=== PATIENT | female | born 1940 ===

== ENCOUNTER 2016-10-09 07:02 | Day surgery (SDC) | payer MEDICARE, MEDICAID ==
[~2016-10-09] VITALS: Ht 157.5 cm; Wt 87.1 kg
[2016-10-09] VITALS (8 sets, daily range): BP systolic 88–123; BP diastolic 54–65
[~2016-10-09 07:02] MED LIST: ASPIR 8181 MG ORAL; AZOR 5-20 MG T1 EACH ORAL; LEVOTHYROXINE100 MCG ORAL; LR 1000ml 1,000 ML IVLG SCH; OMEGA 3 1,0001 EACH PO; SIMVASTATIN20 MG ORAL; TRAMADOL HCL50 MG ORAL; VICODIN1 TA1 ORAL; VITAMIN D1000 UNI1 ORAL
[2016-10-09] MEDS ORDERED: LR 1000ml ONE (07:03)
[2016-10-09] MEDS ORDERED: Propofol 10mg/ml 20ml IV ONE (07:03)
--- NOTE | 2016-10-09 08:36 | Short Stay Surgery H&P ---
History of Present Illness History of Present Illness Chief Complaint Abdominal pains/screening colon with history of coloon polyp. SOCO Mitchell is a 76 year old female who was admitted on for Gerd, Abdominal Pain/history of colon polyps Patient History Allergies: Coded Allergies: PHENAZOPYRIDINE (Verified Adverse Reaction, Unknown, 08/24/14) pass out PAST MEDICAL HISTORY: (1) Hypertension (2) Hypothyroid (3) Hyperlipidemia Past Surgeries: Social History: Medication History Scheduled Acetaminophen/Hydrocodone 5/500 (Vicodin), 1 TAB ORAL PRN, (Reported) Amlodipine Bes/Olmesartan Med 5-20 Mg Tablet (Helga 5-20 Mg Tablet), 1 TAB ORAL DAILY, (Reported) Aspirin* (Aspir 81*), 81 MG ORAL DAILY, (Reported) Cholecalciferol (Vitamin D3)* (Vitamin D*), 1,000 UNIT ORAL DAILY, (Reported) Levothyroxine Sodium* (Levothyroxine Sodium*), 100 MCG ORAL DAILY, (Reported) Troy-3 Fatty Acids/Fish Oil (Troy 3 1,000 Mg Softgel), 1 EACH PO DAILY, ( Reported) Simvastatin (Zocor), 20 MG ORAL BEDTIME, (Reported) Tramadol Hcl* (Ultram*), 50 MG ORAL PRN, (Reported) Review of Systems Cardiovascular: Reports: no symptoms Respiratory: Reports: no symptoms Skeletal: Reports: no symptoms Gastrointestinal: Reports: gastro esophageal reflux disease Genitourinary: Reports: no symptoms Neurologic: Reports: no symptoms Endocrine: Reports: other, thyroid Hematologic: Reports: no symptoms Physical Exam Vital Signs Last Vital Signs Date Time Temp Pulse Resp B/P Pulse Ox O2 Delivery O2 Flow Rate FiO2 10/09/16 08:10 97.5 68 20 123/59 96 Room Air Skin: normal HENT: normal Heart: normal Lungs: normal Abdomen: normal Extremities: normal Genitourinary: normal Plan Plan of Care Upper and lower GI endoscopies. Preop Interventions None. Summary of Findings See the reports Final Diagnosis: Attestation Are the patient's medical conditions optimized for surgery? Attestation Response: yes FIORDALIZA HESTER Oct 09, 2016 08:36
--- NOTE | 2016-10-09 08:37 | Pre-Procedure Note/Attestation ---
Pre-Procedure Note/Attestation Complete Prior to Procedure Planned Procedure: left Procedure Narrative: Endoscopic exam of the upper and the lower GI tract. Indications for Procedure Pre-Operative Diagnosis: R/O Gastritis'/colon polyps. Attestation I attest that I discussed the nature of the procedure; its benefits; risks and complications; and alternatives (and the risks and benefits of such alternatives ), prior to the procedure, with the patient (or the patient's legal insurance representative). I attest that, if there was a reasonable possibility of needing a blood transfusion, the patient (or the patient's legal insurance representative) was given the [place] Department [employer] standardized written summary, pursuant to the Harvinder Saida Blood Safety Act ([place] Health and Safety Code # 1645, as amended). I attest that I re-evaluated the patient just prior to the surgery and that there has been no change in the patient's H&P, except as documented below: MIRSAID Oct 09, 2016 08:37
[2016-10-09] MEDS ORDERED: LR 1000ml 1,000 ML IVLG SCH (08:53)
[2016-10-09] MEDS ORDERED: fentaNYL 100 mcg/2 mL IV PRN (09:00)
--- NOTE | 2016-10-09 09:00 | Anethesia Preoperative Eval ---
Anesthesia Pre-op PMH/ROS General Date of Evaluation: Oct 09, 2016 Time of Evaluation: 08:36 Anesthesiologist: Reilly ASA Score: ASA 3 Mallampati Score Class I : Soft palate, uvula, fauces, pillars visible Class II: Soft palate, uvula, fauces visible Class III: Soft palate, base of uvula visible Class IV: Only hard plate visible Mallampati Classification: Class II Surgeon: Francisco Diagnosis: Abdominal pain, historoy of colon polyps Surgical Procedure: EGD, colonoscopy Family History: no anesthesia problems Allergies: Coded Allergies: PHENAZOPYRIDINE (Verified Adverse Reaction, Unknown, 08/24/14) pass out Medications: see eMAR Past Medical History Cardiovascular: Reports: HTN, Denies: CAD, [place], arrhythmia, other, valve dz Pulmonary: Denies: COPD, AUDIE, asthma, other Gastrointestinal/Genitourinary: Reports: other - Renal CA, Denies: CRI, ESRD, GERD Neurologic/Psychiatric: Denies: CVA, TIA, dementia, depression/anxiety, other Endocrine: Reports: hypothyroidism, Denies: DM, other, steroids HEENT: Denies: LITTLE TRAVERSE (L), LITTLE TRAVERSE (R), cataract (L), cataract (R), glaucoma, other Hematology/Immune: Denies: DVT, anemia, bleeding disorder, other Musculoskeletal/Integumentary: Denies: DDD, DJD, OA, RA, edema, other Other: obesity PMH Narrative: HTN, hypothyroid, renal CA, hypercholesterolemia, obesity PSxH Narrative: C/S, kidney surgery Anesthesia Pre-op Phys. Exam Physician Exam Last Vital Signs Date Time Temp Pulse Resp B/P Pulse Ox O2 Delivery O2 Flow Rate FiO2 10/09/16 08:10 97.5 68 20 123/59 96 Room Air Constitutional: NAD Neurologic: CN 2-12 intact Cardiovascular: RRR, no M/R/G Respiratory: CTA Gastrointestinal: S/NT/ND Airway Exam Mallampati Score: Class II MO: full ROM: full Dentures: upper - Loose front uppers Anesthesia Pre-op A/P Risk Assessment & Plan Assessment: Colon polyps, abdominal pain Plan: GA, TIVA Status Change Before Surgery: No Pre-Antibiotics Drug: None VIDYA THACKER M.D. Oct 09, 2016 09:00
--- NOTE | 2016-10-09 09:01 | Immediate Post-Op Evaluation ---
Immediate Post-Op Evalulation Immediate Post-Op Evalulation Procedure: EGD, Colonoscopy Date of Evaluation: Oct 09, 2016 Time of Evaluation: 09:47 IV Fluids: 300 Blood Pressure Systolic: 88 Blood Pressure Diastolic: 54 Pulse Rate: 68 Respiratory Rate: 10 O2 Sat by Pulse Oximetry: 98 Temperature (Fahrenheit): 97.7 Pain Score (1-10): 0 Nausea: No Vomiting: No Complications No complication Patient Status: awake, patent, none Hydration Status: adequate Drug: None VIDYA THACKER M.D. Oct 09, 2016 09:01
--- NOTE | 2016-10-09 09:24 | Endoscopy Procedure Note ---
Endoscopy Procedure Note Indication for Procedure: History of colon polyps and GERDs. Procedures Performed: EGD - Mild gastroduodenitis otherwise normal upper GI endoscopy. Antral and distal duodenal biopsies were done., colonoscopy - Extremely difficult procedure due significant redundancy of colon. Mild diverticulosis of the left colon. Minimal internal hemorrhoids. No polyps/ tumors noted. Pt Tolerated Procedure Well: Yes Estimated Blood Loss: none Anesthesiologist: Dr. Grover. Anesthesia: moderate sedation Medication Given: see anesthesia record Implant(s) used?: No 50 yrs or older w/o bx or poly: Yes 10yrs. F/U not recommended: Yes If not recommended, why?: 10 yrs. F/U needed: Yes Med reason:<3 yrs.: System Reason:<3 yrs.: FIORDALIZA HESTER Oct 09, 2016 09:24
--- NOTE | 2016-10-09 09:25 | Discharge Instructions ---
Discharge Instructions Discharge Instructions Follow up with: Visit the doctor after 2 weeks. For Congestive Heart Failure Reminder Report to your physician any weight gain of 5 pounds or more in one week. FIORDALIZA HESTER Oct 09, 2016 09:25
--- NOTE | 2016-10-09 09:34 | 48 Hour Post Anesthesia Eval ---
Post Anesthesia Evaluation Procedure: EGD, Colonoscopy Date of Evaluation: Oct 09, 2016 Time of Evaluation: 10:03 Blood Pressure Systolic: 109 0: 55 Pulse Rate: 67 Respiratory Rate: 18 O2 Sat by Pulse Oximetry: 98 Airway: patent Nausea: No Vomiting: No Pain Intensity: 0 Hydration Status: adequate Cardiopulmonary Status: Stable Mental Status/LOC: patient returned to baseline Follow-up Care/Observations: As per surgery Post-Anesthesia Complications: No anesthetic complication Follow-up care needed: N/A VIDYA THACKER M.D. Oct 09, 2016 09:34
[2016-10-09] MEDS ORDERED: LR 1000ml 1,000 ML IV SCH (10:53)
--- NOTE | 2016-10-09 14:15 | Procedure Note ---
DATE OF PROCEDURE: 10/09/2016 SURGEON: Harsha Singh M.D. REFERRING PHYSICIAN: Alia Ceja M.D. PROCEDURE: Total colonoscopy. PREOPERATIVE DIAGNOSIS: History of abdominal pain and colon polyps. POSTOPERATIVE DIAGNOSES: Extremely difficult colonoscopic examination due to high redundancy of the colon with only finding of minimal internal hemorrhoids and mild diverticulosis of the left colon. MEDICATION USED: Per Dr. Sargent. INSTRUMENT: GIF Olympus video colonoscope. DESCRIPTION OF PROCEDURE: The patient after in the arriving endoscopy unit was told about risks and benefits of the procedure, which she accepted and signed the informed consent. She was then put on the left lateral decubitus position. After adequate IV sedation, the scope was gently passed through the anal area, which revealed evidence of hemorrhoidal tags and minimal internal hemorrhoids, which were not friable. The rest of the rectum looked completely normal. At this time, the scope was gradually advanced towards very highly redundant left colon, which took significant amount of time due to tortuosity of the colon and finally, the scope reached to the splenic flexure, which also in this process findings was consistent with mild diverticulosis of the left colon. Finally, the scope was passed through the transverse colon and again the same redundancy was noted, which took significant amount of time to pass through this area reaching to hepatic flexure. Finally, the scope was guided into the right colon all the way to the base of the cecum. All these areas remained to be normal. At this point, base of the cecum was visualized and the appendiceal opening was also seen. At this point, within 8 minutes, the scope was gradually pulled out and no other pathology was found, as the colon cleanup was somewhat substandard, however, multiple irrigation had to be given. The patient tolerated the procedure well and left the endoscopy room in good condition. Harsha Singh M.D. DR: JESUS JOB#: [id number] CC:
--- NOTE | 2016-10-09 14:15 | Procedure Note ---
DATE OF PROCEDURE: 10/09/2016 SURGEON: Harsha Singh M.D. REFERRING PHYSICIAN: Alia Ceja M.D. PROCEDURE: Esophagogastroduodenoscopy with biopsy. PREOPERATIVE DIAGNOSES: History of gastroesophageal reflux and abdominal pain. POSTOPERATIVE DIAGNOSES: Very minimal gastroduodenitis, biopsy was taken from the antrum as well as distal duodenum. Otherwise, complete normal study. MEDICATIONS USED: Per Dr. Sargent, anesthesiologist. INSTRUMENT: GIF Olympus upper gastrointestinal video endoscope. DESCRIPTION OF PROCEDURE: The patient after arriving in the endoscopy unit was told about risks and benefits of the procedure, which she accepted and signed the informed consent. She was then put on the left lateral decubitus position. After adequate IV sedation, the scope was gently passed through the cricopharyngeal area, was lodged into the upper esophagus, gradually advanced towards gastroesophageal junction. The entire length of the esophagus looked normal without any evidence of inflammatory process, ulcers, tumors, stricture etc. GE junction also looked normal without Mahan's or hiatal hernia. At this time, the scope was advanced into the stomach. Gastric cavity was distended with insufflation of air. The areas of the fundus and the body and the antrum were examined in flash welder fashion. All these findings with very minimal erythema of the gastric mucosa over the antrum consistent with mild antritis, which was biopsied. At this point, the scope was passed through normal looking pylorus. First and second portion of duodenum were also examined carefully, which revealed evidence of very minimal inflammatory process over the distal part of the duodenal bulb at the junction the first and second portion, which was biopsied. Otherwise, there was no ulcers, tumors or stricture etc. At this time, the scope was pulled out and retroflexion maneuver was applied in the stomach and examination of the gastroesophageal junction did not reveal any other pathology. Finally, the scope was pulled out and the procedure was terminated. The patient tolerated the procedure well. Harsha Singh M.D. DR: JESUS JOB#: [id number] CC:
== END 2016-10-09 12:30 | disposition home or self-care (01) ==
LOC: GAS 07:02
DX: Z12.11 Encounter for screening for malignant neoplasm of colon (principal); Q43.8 Other specified congenital malformations of intestine; K57.30 Diverticulosis of large intestine without perforation or abscess without bleeding; K64.8 Other hemorrhoids; Z86.010 Personal history of colon polyps; K29.90 Gastroduodenitis, unspecified, without bleeding; K21.9 Gastro-esophageal reflux disease without esophagitis; E66.9 Obesity, unspecified; I10 Essential (primary) hypertension; E03.9 Hypothyroidism, unspecified; E78.5 Hyperlipidemia, unspecified; Z79.82 Long term (current) use of aspirin; Z85.53 Personal history of malignant neoplasm of renal pelvis; Z88.6 Allergy status to analgesic agent
CPT/HCPCS: 43239; G0105; J2704; J7120; 94003; 94150